=== PATIENT | female | born 1965 | race Caucasian/White ===

== ENCOUNTER 2023-10-23 09:14 | Day surgery (SDC) | payer OTHER ==
[~2023-10-23] VITALS: Ht 124.5 cm; Wt 81.6 kg
[2023-10-23] MEDS ORDERED: LIDOCAINE 2% 100 MG/5 ML UJET TP ONE (10:18)
[2023-10-23] MEDS ORDERED: fentaNYL citrate 0.05 MG/ML VIAL ONE (10:18)
[2023-10-23] MEDS: fentaNYL citrate 0.05 MG/ML VIAL IVP ONE (10:38)
== END 2023-10-23 11:36 | disposition home or self-care (01) ==
LOC: MMU 09:14 → MDS 09:14
PROVIDERS: ATTEND Internal Medicine Gastroenterology
DX: Z12.11 Encounter for screening for malignant neoplasm of colon (principal); K63.5 Polyp of colon; E11.9 Type 2 diabetes mellitus without complications; E78.5 Hyperlipidemia, unspecified; M19.90 Unspecified osteoarthritis, unspecified site; Z79.899 Other long term (current) drug therapy
CPT/HCPCS: 45385; 82948; J3010